=== PATIENT | male | born 1950 | race African-American/Black ===

== ENCOUNTER 2016-10-19 13:30 | Emergency (ER) | payer MEDICARE, MEDICAID ==
[~2016-10-19] VITALS: Ht 185.4 cm; Wt 110.0 kg
[~2016-10-19 13:30] MED LIST: ATOR40TA49 PO; BENI40TA31 PO; CARV6.25 PO; COLC1TAB7 PO; CYCL5TAB PO; FURO1TAB93 PO; GABA600T PO; HYDR-3533 PO; LEVEMIR SQ; LORTA10 PO; PRED20 PO; WARF7.5T4 PO
[2016-10-19 13:33] VITALS: BP 158/103; PULSE 119; RESP 15; TEMP 98; O2SAT 95
[2016-10-19 14:12] VITALS: BP 133/89
[2016-10-19] MEDS ORDERED: KETOROLAC TROMETHAMINE 60 MG/2 ML (IM) VIAL IM ONE (14:15)
[2016-10-19] MEDS ORDERED: DEXAMETHASONE SOD PHOS 20 MG/5 ML VIAL IM ONE (14:15)
--- NOTE | 2016-10-19 14:15 | PD ---
HPI Chief Complaint: Pain: Acute or Chronic Time Seen by Provider: 14:15 Travel History International Travel<30 days: No Contact w/Intl Traveler<30days: No Traveled to known affect area: No History of Present Illness HPI 66-year-old male presents to emergency Department with complaint of exacerbation of gouty arthritis to his right hand for little over one week. He has history of gout and his symptoms are similar to past exacerbations. He denies fever, chills, nausea, vomiting. Denies paresthesias loss of sensation to the affected extremity. Reports decreased range of motion to his finger joints secondary to pain and swelling. Reports taking indomethacin and has not taken it for 2 weeks because he ran out of his medication. Has a follow-up appointment with primary care provider in one week. Has been taking Lortab for pain, but has been out for almost a week. Has not taken any other medications or tried any other treatments to alleviate his symptoms. Currently takes Coumadin. History of diabetes and hypertension. No other modifying factors or associated signs and symptoms. PFSH Past Medical History Hx Anticoagulant Therapy: Yes (COUMADIN) Arthritis: No Asthma: No Autoimmune Disease: No Blood Disorders: No Anxiety: Yes Depression: No Heart Rhythm Problems: No Cancer: No Cardiovascular Problems: Yes High Cholesterol: No Chest Pain: No Congestive Heart Failure: Yes COPD: No Cerebrovascular Accident: Yes ("mini stroke") Diabetes: Yes Patient Takes Glucophage: No Diminished Hearing: Yes ([facility] LEFT EAR) Endocrine: Yes GERD: No Glaucoma: No Genitourinary: No Hepatitis: No Hiatal Hernia: No Hypertension: Yes Immune Disorder: No Kidney Stones: Yes Musculoskeletal: No Neurologic: Yes (neuropathy) Psychiatric: No Reproductive: No Respiratory: No Immunizations Current: Yes Migraines: No Myocardial Infarction: No Radiation Therapy: No Renal Failure: No Seizures: No Sickle Cell Disease: No Sleep Apnea: No Thyroid Disease: No Ulcer: No Tetanus Vaccination: < 5 Years Past Surgical History Abdominal Surgery: Yes (CHOLECYSTECTOMY) AICD: No Appendectomy: No Arteriovenous Shunt: No Cardiac Surgery: No Cholecystectomy: Yes (2006) Ear Surgery: No Endocrine Surgery: No Eye Surgery: No Genitourinary Surgery: No Gynecologic Surgery: No Insulin Pump: No Joint Replacement: No Oral Surgery: No Pacemaker: No Thoracic Surgery: No Other Surgery: Yes Social History Alcohol Use: No Tobacco Use: No Substance Use: Yes (MARAJAUNA 1 MONTH AGO) Allergies-Medications (Allergen,Severity, Reaction): Coded Allergies: No Known Allergies (Verified , 10/19/16) Reported Meds & Prescriptions Reported Meds & Active Scripts Active Deltasone (Prednisone) 20 Mg Tab 40 Mg PO DAILY 5 Days Lortab (Hydrocodone-Acetaminophen) 5-325 Mg Tab 1-2 Tab PO Q6H PRN Reported Lipitor (Atorvastatin Calcium) 40 Mg Tab 40 Mg PO HS Coreg (Carvedilol) 6.25 Mg Tab 6.25 Mg PO BID Flexeril (Cyclobenzaprine HCl) 5 Mg Tab 5 Mg PO DAILY Flomax (Tamsulosin HCl) 0.4 Mg Cap 0.4 Mg PO HS Benicar Hct (Olmesartan-Hydrochlorothiazide) 40-12.5 mg Tab 1 Tab PO DAILY Lasix (Furosemide) 40 Mg Tab 40 Mg PO DAILY Gabapentin 600 Mg Tab 600 Mg PO BID Lortab (Hydrocodone-Acetaminophen) 10-325 Mg Tab 1 Tab PO Q6H PRN Levemir Inj (Insulin Detemir) 1,000 unit/ 10 ML Vial 35 Units SQ DAILY Do not mix with any other Insulin. Coumadin (Warfarin) 7.5 Mg Tab 7.5 Mg PO DAILY Review of Systems Except as stated in HPI: all other systems reviewed are Neg Physical Exam Narrative GENERAL: Well-nourished, well-developed male patient, in no acute distress; febrile, nontoxic appearing SKIN: Warm and dry. Right hand with mild erythema; without signs of cellulitis ; findings consistent with gouty arthritis exacerbation. HEAD: Atraumatic. Normocephalic. EYES: Pupils equal and round. No scleral icterus. No injection or drainage. ENT: Mucosa pink and moist. Airway patent. NECK: Trachea midline. CARDIOVASCULAR: Regular rate. RESPIRATORY: No accessory muscle use. GASTROINTESTINAL: Abdomen soft, non-tender, nondistended. 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 Extremities without clubbing, cyanosis, or edema. No obvious deformities. NEUROLOGICAL: Awake and alert. Oriented 3. No obvious cranial nerve deficits. Motor grossly within normal limits. Normal speech. PSYCHIATRIC: Appropriate mood and affect; insight and judgment normal. Data Data Last Documented VS Vital Signs Date Time Temp Pulse Resp B/P Pulse Ox O2 Delivery O2 Flow Rate FiO2 10/19/16 14:12 133/89 10/19/16 13:33 98.0 119 15 95 Orders Ketorolac Inj (Toradol Inj) (10/19/16 14:15) Dexamethasone Inj (Decadron Inj) (10/19/16 14:15) MDM Medical Decision Making Medical Screen Exam Complete: Yes Emergency Medical Condition: Yes Medical Record Reviewed: Yes Differential Diagnosis Gouty arthritis, cellulitis, Narrative Course 66-year-old male with history of gout to the right hand with a exacerbation that is consistent with past exacerbations. Heart rate recheck on physical exam is approximately 90-100 bpm. Patient says he ran out of his indomethacin about 2 weeks ago. He is also on Coumadin and I do not feel comfortable refilling his indomethacin secondary to patient being on anticoagulants. I spoke with my attending physician, Dr. Patel, and she agrees with my plan of care. Decadron 10 mg IM administered in the ER. Prednisone and Lortab prescribed for home. Patient is medically cleared and stable for discharge. Discussed reasons to return to the emergency department. Instructed patient to follow up with primary care provider. Patient agrees with treatment plan. The patients vital signs are stable and the patient is stable for outpatient follow- up and treatment. Patient discharged home, stable and in no acute distress. Diagnosis Primary Impression: Acute gout of right hand Qualified Code: M10.9 - Acute gout of right hand, unspecified cause Referrals: Primary Care Physician Patient Instructions: General Instructions, Gout (ED) Additional Instructions: Rest Elevate affected extremity Prednisone as prescribed Avoid red meat, shellfish, alcohol, and other triggering foods to decrease risk of gout flare-ups Follow-up with your primary care provider Return to the emergency department with worsening of symptoms Med/Other Pt SpecificInfo: Prescription(s) given Scripts Prednisone (Deltasone)20 Mg Tab40 Mg PO DAILY 5 Days Ref 0 Prov:Anita Santo 10/19/16 Hydrocodone-Acetaminophen (Lortab)5-325 Mg Tab1-2 Tab PO Q6H PRN (PAIN) #15 TAB Ref 0 Prov:Jaclyn Patel MD 10/19/16 Disposition: 01 DISCHARGE HOME Condition: Stable Anita Santo Oct 19, 2016 14:15
[2016-10-19] MEDS ORDERED: HYDR-3533 PO (14:16)
[2016-10-19] MEDS ORDERED: PRED-503 PO (14:19)
[2016-10-19] MEDS ORDERED: HYDR-3535 PO (14:25)
[2016-10-19] MEDS ORDERED: COUM7.5T PO (14:25)
[2016-10-19] MEDS ORDERED: GABA600T PO (14:25)
[2016-10-19] MEDS ORDERED: CYCL5TAB PO (14:25)
[2016-10-19] MEDS ORDERED: LEVEMIR SQ (14:25)
[2016-10-19] MEDS ORDERED: TAMS5CAP PO (14:25)
[2016-10-19] MEDS ORDERED: LIPI40TA PO (14:25)
[2016-10-19] MEDS ORDERED: FURO1TAB60 PO (14:25)
[2016-10-19] MEDS ORDERED: BENI40TA5 PO (14:25)
[2016-10-19] MEDS ORDERED: CARV6.25 PO (14:25)
== END 2016-10-19 14:45 | disposition home or self-care (01) ==
LOC: NEPB 13:30
DX: M10.9 Gout, unspecified (principal); E11.9 Type 2 diabetes mellitus without complications; I10 Essential (primary) hypertension; H91.92 Unspecified hearing loss, left ear; Z79.01 Long term (current) use of anticoagulants; Z79.4 Long term (current) use of insulin; Z86.79 Personal history of other diseases of the circulatory system; Z86.73 Personal history of transient ischemic attack (TIA), and cerebral infarction without residual deficits; Z87.442 Personal history of urinary calculi; Z86.69 Personal history of other diseases of the nervous system and sense organs
CPT/HCPCS: 96372; 96374; 99282; J1100; J1885

== ENCOUNTER 2017-03-13 13:58 | Emergency (ER) | payer MEDICARE, MEDICAID ==
[~2017-03-13 13:58] MED LIST changes: -ATOR40TA49 PO; -BENI40TA31 PO; +BENI40TA5 PO; -COLC1TAB7 PO; +COUM7.5T PO; +FURO1TAB60 PO; -FURO1TAB93 PO; +HYDR-3535 PO; +LIPI40TA PO; -LORTA10 PO; +PRED-503 PO; -PRED20 PO; +TAMS5CAP PO; -WARF7.5T4 PO
[2017-03-13 14:00] VITALS: BP 136/91; PULSE 134; RESP 18; TEMP 99.8; O2SAT 98
--- NOTE | 2017-03-13 14:43 | PD ---
Physical Exam Date Seen by Provider: Mar 13, 2017 Time Seen by Provider: 14:42 Data Data Last Documented VS Vital Signs Date Time Temp Pulse Resp B/P Pulse Ox O2 Delivery O2 Flow Rate FiO2 03/13/17 14:00 99.8 134 18 136/91 98 MDM Supervised Visit with HÉCTOR: No Narrative Course 66 YO M with complaint of back pain, fever x " a couple days." States doctor sent for blood work. Vitals reviewed. Seen in triage, awaiting priority bed placement. Mandi Hutton Mar 13, 2017 14:43
[2017-03-13] MEDS ORDERED: SODIUM CHLOR 0.9% 1000 ML INJ 1,000 ML IV SCH ×3 (17:12)
[2017-03-13 17:15] VITALS: O2SAT 96
--- NOTE | 2017-03-13 17:26 | PD ---
HPI Chief Complaint: Back/ Neck Pain or Injury Time Seen by Provider: 17:10 Travel History International Travel<30 days: No Contact w/Intl Traveler<30days: No Traveled to known affect area: No History of Present Illness HPI 66-year-old male with history of diabetes presents for evaluation of lower back pain and fevers. Symptoms started spontaneously 2-3 days ago. He reports an aching pain in his lower back that is constant, worse with movement, no alleviating factors. He denies any bowel or bladder incontinence, saddle anesthesia, radicular symptoms. He has also been having chills. Today he saw his primary care physician and was told that he appeared dehydrated and had a fever and he was referred here for further workup. He does endorse decreased appetite and generalized weakness over the past few days as well. He denies any sore throat, rash, cough or congestion, chest pain or shortness of breath, abdominal pain, nausea or vomiting, dysuria, testicular or scrotal pain, rectal pain. No history of IV drug abuse. No other complaints. PFSH Past Medical History Hx Anticoagulant Therapy: Yes (COUMADIN) Arthritis: No Asthma: No Autoimmune Disease: No Blood Disorders: No Anxiety: Yes Depression: No Heart Rhythm Problems: No Cancer: No Cardiovascular Problems: Yes High Cholesterol: No Chest Pain: No Congestive Heart Failure: Yes COPD: No Cerebrovascular Accident: Yes ("mini stroke") Diabetes: Yes Patient Takes Glucophage: No (lantis) Diminished Hearing: Yes ([facility] LEFT EAR) Endocrine: Yes GERD: No Glaucoma: No Genitourinary: No Hepatitis: No Hiatal Hernia: No Hypertension: Yes Immune Disorder: No Kidney Stones: Yes Musculoskeletal: No Neurologic: Yes (neuropathy) Psychiatric: No Reproductive: No Respiratory: No Immunizations Current: Yes Migraines: No Myocardial Infarction: No Radiation Therapy: No Renal Failure: No Seizures: No Sickle Cell Disease: No Sleep Apnea: No Thyroid Disease: No Ulcer: No Past Surgical History Abdominal Surgery: Yes (CHOLECYSTECTOMY) AICD: No Appendectomy: No Arteriovenous Shunt: No Cardiac Surgery: No Cholecystectomy: Yes (2006) Ear Surgery: No Endocrine Surgery: No Eye Surgery: No Genitourinary Surgery: No Gynecologic Surgery: No Insulin Pump: No Joint Replacement: No Oral Surgery: No Pacemaker: No Thoracic Surgery: No Other Surgery: Yes Social History Alcohol Use: No Tobacco Use: No Substance Use: Yes (MARAJAUNA 1 MONTH AGO) Allergies-Medications (Allergen,Severity, Reaction): Coded Allergies: No Known Allergies (Verified , 10/19/16) Reported Meds & Prescriptions Reported Meds & Active Scripts Active Reported Lipitor (Atorvastatin Calcium) 40 Mg Tab 40 Mg PO HS Coreg (Carvedilol) 6.25 Mg Tab 6.25 Mg PO BID Flexeril (Cyclobenzaprine HCl) 5 Mg Tab 5 Mg PO DAILY Flomax (Tamsulosin HCl) 0.4 Mg Cap 0.4 Mg PO HS Benicar Hct (Olmesartan-Hydrochlorothiazide) 40-12.5 mg Tab 1 Tab PO DAILY Lasix (Furosemide) 40 Mg Tab 40 Mg PO DAILY Gabapentin 600 Mg Tab 600 Mg PO BID Lortab (Hydrocodone-Acetaminophen) 10-325 Mg Tab 1 Tab PO Q6H PRN Levemir Inj (Insulin Detemir) 1,000 unit/ 10 ML Vial 35 Units SQ DAILY Do not mix with any other Insulin. Coumadin (Warfarin) 7.5 Mg Tab 7.5 Mg PO DAILY@1600 Review of Systems Except as stated in HPI: all other systems reviewed are Neg Physical Exam Narrative GENERAL: Well-developed well-nourished male in no acute distress. Vital signs reviewed. Tachycardic. SKIN: Warm and dry. No rash, no erythema or induration of the skin. HEAD: Atraumatic. Normocephalic. EYES: Pupils equal and round. No scleral icterus. No injection or drainage. ENT: No nasal bleeding or discharge. Mucous membranes pink and moist. NECK: Trachea midline. No JVD. CARDIOVASCULAR: Regular rate and rhythm. No murmur appreciated. RESPIRATORY: No accessory muscle use. Clear to auscultation. Breath sounds equal bilaterally. GASTROINTESTINAL: Abdomen soft, non-tender, nondistended. Hepatic and splenic margins not palpable. Normal appearing testicles and scrotum. MUSCULOSKELETAL: No obvious deformities. Tender to palpation lumbar spine. No CVA tenderness. NEUROLOGICAL: Awake and alert. No obvious cranial nerve deficits. Motor grossly within normal limits. Normal speech. PSYCHIATRIC: Appropriate mood and affect; insight and judgment normal. Data Data Last Documented VS Vital Signs Date Time Temp Pulse Resp B/P Pulse Ox O2 Delivery O2 Flow Rate FiO2 03/13/17 21:10 96 20 110/62 95 03/13/17 17:15 Room Air 6/21/17 14:00 99.8 Orders Complete Blood Count With Diff (03/13/17 17:12) Comprehensive Metabolic Panel (03/13/17 17:12) Lactic Acid Sepsis Protocol (03/13/17 17:12) Magnesium (Mg) (03/13/17 17:12) Urinalysis - C+S If Indicated (03/13/17 17:12) Influenzae A/B Antigen (03/13/17 17:12) Blood Culture (03/13/17 17:12) Chest, Single Ap (03/13/17 17:12) Ecg Monitoring (03/13/17 17:12) Iv Access Insert/Monitor (03/13/17 17:12) Oximetry (03/13/17 17:12) Oxygen Administration (03/13/17 17:12) Sodium Chlor 0.9% 1000 Ml Inj (Ns 1000 M (03/13/17 17:12) Sodium Chlor 0.9% 1000 Ml Inj (Ns 1000 M (03/13/17 17:12) Sodium Chlor 0.9% 1000 Ml Inj (Ns 1000 M (03/13/17 17:12) Electrocardiogram (03/13/17 17:12) Creatine Kinase (Cpk) (03/13/17 17:12) Ct Abd/Pel W Iv Contrast(Rout) (03/13/17 17:37) Mri L Spine W&W/O Contrast (03/13/17 ) Vancomycin Inj (Vancomycin Inj) (03/13/17 19:00) Piperacil-Tazo 3.375 Gm Premix (Zosyn 3. (03/13/17 19:00) Acetaminophen (Tylenol) (03/13/17 19:00) Morphine Inj (Morphine Inj) (03/13/17 19:30) Skull, Limited (<4 Views) (03/13/17 ) Iohexol 350 Inj (Omnipaque 350 Inj) (03/13/17 19:53) Gadodiamide Pf Inj (Omniscan Pf Inj) (03/13/17 20:29) Labs Laboratory Tests Test 03/13/17 03/13/17 17:55 19:30 White Blood Count 11.4 TH/MM3 Red Blood Count 5.05 MIL/MM3 Hemoglobin 13.3 GM/DL Hematocrit 41.1 % Mean Corpuscular Volume 81.3 FL Mean Corpuscular Hemoglobin 26.4 PG Mean Corpuscular Hemoglobin 32.4 % Concent Red Cell Distribution Width 15.5 % Platelet Count 190 TH/MM3 Mean Platelet Volume 8.2 FL Neutrophils (%) (Auto) 74.1 % Lymphocytes (%) (Auto) 16.3 % Monocytes (%) (Auto) 9.1 % Eosinophils (%) (Auto) 0.1 % Basophils (%) (Auto) 0.4 % Neutrophils # (Auto) 8.5 TH/MM3 Lymphocytes # (Auto) 1.9 TH/MM3 Monocytes # (Auto) 1.0 TH/MM3 Eosinophils # (Auto) 0.0 TH/MM3 Basophils # (Auto) 0.0 TH/MM3 CBC Comment DIFF FINAL Differential Comment Sodium Level 138 MEQ/L Potassium Level 3.6 MEQ/L Chloride Level 103 MEQ/L Carbon Dioxide Level 27.5 MEQ/L Anion Gap 8 MEQ/L Blood Urea Nitrogen 15 MG/DL Creatinine 1.28 MG/DL Estimat Glomerular Filtration 69 ML/MIN Rate Random Glucose 273 MG/DL Lactic Acid Level 1.5 mmol/L Calcium Level 9.5 MG/DL Magnesium Level 1.8 MG/DL Total Bilirubin 1.1 MG/DL Aspartate Amino Transf 11 U/L (AST/SGOT) Alanine Aminotransferase 27 U/L (ALT/SGPT) Alkaline Phosphatase 82 U/L Total Creatine Kinase 50 U/L Total Protein 8.4 GM/DL Albumin 3.7 GM/DL Urine Color YELLOW Urine Turbidity CLEAR Urine pH 5.5 Urine Specific [place] 1.027 Urine Protein 30 mg/dL Urine Glucose (UA) 1000 mg/dL Urine Ketones NEG mg/dL Urine Occult Blood NEG Urine Nitrite NEG Urine Bilirubin NEG Urine Urobilinogen 2.0 MG/DL Urine Leukocyte Esterase NEG Urine RBC 1 /hpf Urine WBC 2 /hpf Urine Squamous Epithelial <1 /hpf Cells Microscopic Urinalysis Comment CATH-CULT NOT IND MDM Medical Decision Making Medical Screen Exam Complete: Yes Emergency Medical Condition: Yes Medical Record Reviewed: Yes Interpretation(s) EKG sinus tachycardia rate 107 Differential Diagnosis Viral syndrome, osteomyelitis, epidural abscess, pyelonephritis, prostatitis, cellulitis, sepsis, pneumonia Narrative Course This is a 66-year-old male who has been having fevers and lower back pain for the past 2 days. On initial examination he was tachycardic, low-grade fever. He was sent here by his primary care physician for evaluation of this examination. On examination is only finding is really some midline tenderness to palpation along the lower lumbar spine. Therefore given his fever plan is for MRI of the lumbar spine with and without contrast. In addition lab work, blood cultures, chest x-ray, urinalysis, influenza antigen and CT of the abdomen and pelvis have been ordered. The patient was given broad-spectrum antibiotics and 3 L of IV fluids. He was given pain medication. Upon reexamination if he feels improved. His heart rate is down to 95. His blood pressure is normal. His lab work has been reviewed. His to be BBC count is 11.4, glucose is 273, lactic acid within normal limits, urinalysis reveals 1000 glucose, no evidence of infectious process. CT of the abdomen and pelvis reveals no acute findings. There is a focal area of skin thickening and subcutaneous inflammation in the right lower quadrant of the intra-abdominal wall. This is where the patient injects his subcutaneous insulin. He has no pain in this region and on examination he is no reproducible tenderness to palpation, no cellulitic changes or evidence of induration or fluctuance of the skin to suggest an infectious process. Chest x-ray is normal. MRI of the lumbar spine reveals no evidence of infectious process. Likely the patient is suffering from a viral syndrome. At this point in time the blood cultures are still pending. The plan would be to discharge the patient with close follow-up with his primary care physician in the next 1-2 days. He understands to return here for any acutely new or worsening symptoms. He is stable for discharge. Procedures EKG Prior to Arrival: Yes Diagnosis Primary Impression: Low back pain Qualified Code: M54.5 - Acute bilateral low back pain without sciatica Additional Impression: Fever Qualified Code: R50.9 - Fever, unspecified fever cause Additional Instructions: Stay well-hydrated and well-nourished. Take [id number] Tylenol or Motrin for pain per dosing instructions on the bottle. Follow-up with your primary care physician Dr. Gonzales in the next 1-2 days for recheck. If you develop any new or worsening symptoms return to the emergency room. Med/Other Pt SpecificInfo: No Change to Meds Disposition: 01 DISCHARGE HOME Condition: Stable Garland Torres Mar 13, 2017 17:26
--- NOTE | 2017-03-13 18:07 | RADRPT ---
EXAM DATE/TIME: 03/13/2017 17:25 [facility] COMPARISON: No previous studies available for comparison. INDICATIONS : Fever starting today MEDICAL HISTORY : None. SURGICAL HISTORY : None. ENCOUNTER: Initial ACUITY: 1 day PAIN SCORE: 0/10 LOCATION: Bilateral chest FINDINGS: Portable AP view of the chest demonstrates a normal-sized cardiac silhouette. No effusion, consolidat ion, or pneumothorax is visualized. The bones and soft tissues demonstrate no acute abnormality. CONCLUSION: No acute cardiopulmonary abnormality is identified. Johann Squires MD on March 13, 2017 at 18:04 Board Certified Radiologist. This report was verified electronically.
[2017-03-13 18:24] LABS: AUTOMATED NEUTROPHIL # 8.5 TH/MM3 (1.8-7.7); BASOPHIL % 0.4 % (0.0-2.0); EOSINOPHIL % 0.1 % (0.0-4.0); HEMATOCRIT 41.1 % (39.0-51.0); HEMO FLAGS DIFF FINAL; LYMPH % 16.3 % (9.0-44.0); LYMPHOCYTE # 1.9 TH/MM3 (1.0-4.8); MEAN CELL VOLUME 81.3 FL (80.0-100.0); MEAN CORPUSCULAR HEMOGLOBIN 26.4 PG (27.0-34.0); MEAN CORPUSCULAR HGB CONC 32.4 % (32.0-36.0); MONO % 9.1 % (0.0-8.0); NEUT % 74.1 % (16.0-70.0); PLATELET COUNT 190 TH/MM3 (150-450); RED BLOOD COUNT 5.05 MIL/MM3 (4.50-5.90); RED CELL DISTRIBUTION WIDTH 15.5 % (11.6-17.2); WHITE BLOOD COUNT 11.4 TH/MM3 (4.0-11.0)
--- NOTE | 2017-03-13 18:47 | PD ---
Data Data Last Documented VS Vital Signs Date Time Temp Pulse Resp B/P Pulse Ox O2 Delivery O2 Flow Rate FiO2 03/13/17 17:15 96 Room Air 03/13/17 14:00 99.8 134 18 136/91 Orders Complete Blood Count With Diff (03/13/17 17:12) Comprehensive Metabolic Panel (03/13/17 17:12) Lactic Acid Sepsis Protocol (03/13/17 17:12) Magnesium (Mg) (03/13/17 17:12) Urinalysis - C+S If Indicated (03/13/17 17:12) Influenzae A/B Antigen (03/13/17 17:12) Blood Culture (03/13/17 17:12) Chest, Single Ap (03/13/17 17:12) Ecg Monitoring (03/13/17 17:12) Iv Access Insert/Monitor (03/13/17 17:12) Oximetry (03/13/17 17:12) Oxygen Administration (03/13/17 17:12) Sodium Chlor 0.9% 1000 Ml Inj (Ns 1000 M (03/13/17 17:12) Sodium Chlor 0.9% 1000 Ml Inj (Ns 1000 M (03/13/17 17:12) Sodium Chlor 0.9% 1000 Ml Inj (Ns 1000 M (03/13/17 17:12) Electrocardiogram (03/13/17 17:12) Creatine Kinase (Cpk) (03/13/17 17:12) Ct Abd/Pel W Iv Contrast(Rout) (03/13/17 17:37) Mri L Spine W&W/O Contrast (03/13/17 ) Labs Laboratory Tests Test 03/13/17 17:55 White Blood Count 11.4 TH/MM3 Red Blood Count 5.05 MIL/MM3 Hemoglobin 13.3 GM/DL Hematocrit 41.1 % Mean Corpuscular Volume 81.3 FL Mean Corpuscular Hemoglobin 26.4 PG Mean Corpuscular Hemoglobin 32.4 % Concent Red Cell Distribution Width 15.5 % Platelet Count 190 TH/MM3 Mean Platelet Volume 8.2 FL Neutrophils (%) (Auto) 74.1 % Lymphocytes (%) (Auto) 16.3 % Monocytes (%) (Auto) 9.1 % Eosinophils (%) (Auto) 0.1 % Basophils (%) (Auto) 0.4 % Neutrophils # (Auto) 8.5 TH/MM3 Lymphocytes # (Auto) 1.9 TH/MM3 Monocytes # (Auto) 1.0 TH/MM3 Eosinophils # (Auto) 0.0 TH/MM3 Basophils # (Auto) 0.0 TH/MM3 CBC Comment DIFF FINAL Differential Comment MDM Supervised Visit with HÉCTOR: Yes Narrative Course The history, exam, and medical decision-making in the associated midlevel provider note were completed with my assistance. I reviewed and agree with the findings presented. I attest that I had a [id number] encounter with the patient on the same day, and personally performed and documented my assessment and findings in the medical record. *My assessment and Findings: This is a 66-year-old male who presents to the emergency department with severe low back pain in the setting of some fevers and chills. He has a history of diabetes. He has a temperature of 99.8 here. He was given broad-spectrum antibiotics. I'm uncertain what is source of infection is but given he has mostly midline vertebral tenderness on exam plan for MRI of the lumbar spine as well as CT imaging of the abdomen. Disposition will be made pending those results. Radha Parnell MD Mar 13, 2017 18:47
[2017-03-13 18:52] LABS: ANION GAP 8 MEQ/L (5-15); AST (GOT) 11 U/L (15-37); BICARBONATE 27.5 MEQ/L (21.0-32.0); BLOOD UREA NITROGEN 15 MG/DL (7-18); CHLORIDE 103 MEQ/L (98-107); GLOMERULAR FILTRATION RATE 69 ML/MIN (>89); MAGNESIUM 1.8 MG/DL (1.5-2.5); POTASSIUM 3.6 MEQ/L (3.5-5.1); SODIUM (NA) 138 MEQ/L (136-145)
[2017-03-13 18:55] LABS: ALKALINE PHOSPHATASE 82 U/L (45-117); ALT (GPT) 27 U/L (12-78); TOTAL BILIRUBIN ADULT 1.1 MG/DL (0.2-1.0)
[2017-03-13] MEDS ORDERED: ACETAMINOPHEN 325 MG TAB PO ONE (19:00)
[2017-03-13] MEDS ORDERED: VANCOMYCIN INJ 1,000 MG in SODIUM CHLOR 0.9% 250 ML INJ 250 ML IV ONE (19:00)
[2017-03-13] MEDS ORDERED: PIPERACIL-TAZO 3.375 GM PREMIX 50 ML IV ONE (19:00)
[2017-03-13 19:07] LABS: CREATINE KINASE 50 U/L (39-308)
[2017-03-13] MEDS ORDERED: MORPHINE SULFATE 4 MG/ML INJ IV PUSH ONE (19:30)
[2017-03-13] MEDS ORDERED: IOHEXOL 350 MG/ML 10 ML VIAL (for RAD DIAG) IV ONE (19:53)
[2017-03-13 19:55] LABS: BLOOD, URINE NEG (NEG); GLUCOSE,URINE 1000 mg/dL (NEG); KETONE, URINE NEG (NEG); NITRITE,URINE NEG (NEG); PH, URINE 5.5 (5.0-8.5); SQUAMOUS EPITHELIAL CELL URINE <1 /hpf (0-5); URINE COLOR YELLOW (YELLW/STRAW)
--- NOTE | 2017-03-13 20:04 | RADRPT ---
EXAM DATE/TIME: 03/13/2017 19:42 [facility] COMPARISON: SKULL LIMITED (<4 VWS), March 13, 2017, 19:55. INDICATIONS : Lower abdominal pain and fever. IV CONTRAST: 93 cc Omnipaque 350 (iohexol) IV ORAL CONTRAST: No oral contrast ingested. RADIATION DOSE: 15.47 CTDIvol (mGy) MEDICAL HISTORY : Hypertension. Renal calculi. Cardiovascular diseaseDiabetes. SURGICAL HISTORY : Cholecystectomy. ENCOUNTER: Initial ACUITY: 1 day PAIN SCALE: 8/10 LOCATION: Bilateral lower quadrant TECHNIQUE: Volumetric scanning of the abdomen and pelvis was performed. Using automated exposure control and ad justment of the mA and/or kV according to patient size, radiation dose was kept as low as reasonably achievable to obtain optimal diagnostic quality images. FINDINGS: There is respiratory motion artifact. LOWER LUNGS: The visualized lower lungs are clear. LIVER: Homogeneous density with 12 mm low-density lesion in the central liver in segment 4. Hounsfield measu rements are in the mid 20s. There is a 3 mm low-density lesion in the left lateral segment that is to o small to characterize. Patient is post cholecystectomy with clips in the gallbladder fossa. There is no dilation of the biliary tree. SPLEEN: Normal size without lesion. PANCREAS: Within normal limits. KIDNEYS: Normal in size and shape. There is no mass, stone or hydronephrosis. There is a 3.2 cm cyst in the l eft mid kidney. ADRENAL GLANDS: Within normal limits. VASCULAR: There is no aortic aneurysm. BOWEL/MESENTERY: The stomach, small bowel, and colon demonstrate no acute abnormality. There is no free intraperitone al air or fluid. ABDOMINAL WALL: There is skin thickening and subcutaneous stranding on the right lower quadrant anterior abdominal wa ll.. RETROPERITONEUM: There is no lymphadenopathy. BLADDER: No wall thickening or mass. REPRODUCTIVE: Within normal limits. INGUINAL: There is no lymphadenopathy or hernia. MUSCULOSKELETAL: There are degenerative changes of the lumbar spine and hip joints, right greater than left. No acute osseous abnormality is identified. CONCLUSION: 1. No acute finding is identified to explain the clinical symptoms. 2. There is a focal area of skin thickening and subcutaneous inflammation on the right lower quadrant anterior abdominal wall. 3. There is a 12 mm low-density lesion within segment 4 of the liver that is incompletely characteriz ed on this exam. Johann Squires MD on March 13, 2017 at 19:56 Board Certified Radiologist. This report was verified electronically.
[2017-03-13 20:06] LABS: COMMENT (UR) CATH-CULT NOT IND; CULTURE IF INDICATED CATH CULTURE NOT IND
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
[2017-03-13] MEDS ORDERED: GADODIAMIDE PF 287 MG/ML 5 ML VIAL (for RAD MRI) IV ONE (20:29)
[2017-03-13 21:10] VITALS: BP 110/62; PULSE 96; RESP 20; O2SAT 95
--- NOTE | 2017-03-13 21:21 | RADRPT ---
EXAM DATE/TIME: 03/13/2017 20:08 [facility] COMPARISON: No previous studies available for comparison. INDICATIONS : Osteomyelitis. Back pain with fever. CONTRAST: 20 cc Omniscan (gadodiamide) IV MEDICAL HISTORY : Congestive heart failure. Hypertension. SURGICAL HISTORY : Cholecystectomy. ENCOUNTER: Subsequent ACUITY: 1 day PAIN SCORE: 7/10 LOCATION: back. TECHNIQUE: Multiplanar multisequence MRI of the lumbar spine was performed with and without contrast. FINDINGS: The most caudal appearing lumbar vertebra is numbered as L5. VERTEBRAE: Bone marrow signal is within normal limits. There is no anterolisthesis or retrolisthesis. Vertebral body height is maintained. CONUS: Normal level and configuration. POST CONTRAST: No abnormal areas of contrast enhancement are seen. T12-L1: No disc herniation, canal stenosis, or neural foraminal stenosis. There are endplate osteophytes. L1-L2: No disc herniation, canal stenosis, or neural foraminal stenosis. There is mild facet hypertrophy. L2-L3: No disc herniation, canal stenosis, or neural foraminal stenosis. There is a mild diffuse disc bulge. Moderate facet hypertrophy is present. L3-L4: There is disc desiccation with mild decreased disc height and a diffuse disc bulge. Severe facet hype rtrophy is present with fluid in the facet joints and synovial cyst posterior to the left facet joint . No canal stenosis is present. There is left neural foraminal narrowing. L4-L5: There is disc desiccation with decreased disc height and a diffuse disc bulge. There is severe facet hypertrophy. No canal stenosis is present. There is mild narrowing of the neural foramina bilaterally . L5-S1: There is disc desiccation. No canal stenosis or neural foraminal stenosis is present. There is modera te facet hypertrophy. CONCLUSION: 1. There are no findings to indicate osteomyelitis and no acute finding is identified. 2. Mild degenerative disc disease at multiple levels and moderate to severe facet arthrosis, as above . It is most severe at L3-L4. Johann Squires MD on March 13, 2017 at 20:55 Board Certified Radiologist. This report was verified electronically.
[2017-03-13 22:22] VITALS: BP 111/69
--- NOTE | 2017-03-14 14:00 | EKG ---
Date Performed: 03/13/2017 Time Performed: 17:29:13 PTAGE: 66 years EKG: SINUS TACHYCARDIA PATTERN CONSISTENT WITH PULMONARY DISEASE LEFT ANTERIOR FASCICULAR BLOCK ABNORMAL ECG Compared to prior tracing no significant change PREVIOUS TRACING : 01/19/2014 17.44 DOCTOR: Hazel Rose Interpretating Date/Time 03/14/2017 13:52:14
== END 2017-03-13 22:25 | disposition home or self-care (01) ==
LOC: NEPE 13:58
DX: M54.5 Low back pain (principal); R50.9 Fever, unspecified; R53.1 Weakness; R00.0 Tachycardia, unspecified; F41.9 Anxiety disorder, unspecified; I50.9 Heart failure, unspecified; I10 Essential (primary) hypertension; E11.40 Type 2 diabetes mellitus with diabetic neuropathy, unspecified; Z86.73 Personal history of transient ischemic attack (TIA), and cerebral infarction without residual deficits
CPT/HCPCS: 70250; 71010; 72158; 74177; 80053; 81001; 82550; 83605; 83735; 85025; 87040; 87804; 93005; 96361; 96365; 96366; 96368; 96375; 99285; A9579; J2270; J2543; J3370; J7030; J7050; Q9967